=== PATIENT | female | born 1975 | race Caucasian/White ===

== ENCOUNTER 2018-11-22 21:51 | Emergency (ER) | payer OTHER ==
[2018-11-22 21:56] VITALS: BP 107/69; PULSE 78; TEMP 98.5; BMI 23.4
--- NOTE | 2018-11-23 00:21 | PDOC ---
History of Present Illness - General Chief Complaint: Injury Stated Complaint: ANKLE INJURY Time Seen by Provider: 11/22/18 23:21 - History of Present Illness Initial Comments: 11/23/18 00:16 43 yo female with left ankle pain, ankle and foot swelling after twisting it while running yesterday Past History - Past Medical History Allergies/Adverse Reactions: Allergies Allergy/AdvReac Type Severity Reaction Status Date / Time No Known Allergies Allergy Verified 11/22/18 21:57 COPD: No - Psycho Social/Smoking Cessation Hx Smoking History: Never smoked Review of Systems - Review of Systems Able to Perform ROS?: Yes Is the patient limited Tajik proficient: Yes Constitutional: No: Symptoms Reported HEENTM: No: Symptoms Reported Respiratory: No: Symptoms reported Cardiac (ROS): No: Symptoms Reported ABD/GI: No: Symptoms Reported : No: Symptoms Reported Musculoskeletal: Yes: Joint Pain, Joint Swelling Integumentary: No: Symptoms Reported Neurological: No: Symptoms reported Endocrine: No: Symptoms Reported *Physical Exam - Vital Signs Last Vital Signs Temp Pulse Resp BP Pulse Ox 98.5 F 78 18 107/69 97 11/22/18 21:55 11/22/18 21:55 11/22/18 21:55 11/22/18 21:55 11/22/18 21:55 - Physical Exam General Appearance: No: Apparent Distress HEENT: positive: Normal Voice Neck: positive: Supple Respiratory/Chest: positive: Lungs Clear Cardiovascular: positive: Regular Rhythm, Regular Rate Musculoskeletal: positive: Other (left ankle swelling with pain and tenderness laterally, no deformity, distal pulses in tact) Extremity: positive: Normal Capillary Refill Integumentary: positive: Dry, Warm Neurologic: positive: Fully Oriented, Alert, Motor Strength 5/5 ED Treatment Course - RADIOLOGY Radiology Studies Ordered: Category Date Time Status ANKLE-LEFT [RAD] Stat Radiology 11/22/18 23:22 Taken FOOT-LEFT [RAD] Stat Radiology 11/22/18 23:22 Taken Radiograph Interpretation: 11/23/18 00:20 left foot/ankle, no obvious fracture Medical Decision Making - Medical Decision Making 11/23/18 00:20 exam and imaging most c/w ankle sprain splint applied to inability to bear weight will d/c with crutches, ortho follow up Discharge - Discharge Information Problems reviewed: Yes Clinical Impression/Diagnosis: High ankle sprain of left lower extremity Condition: Stable Disposition: HOME - Admission No - Follow up/Referral Referrals: Percy Delgado MD [Staff Physician] - - Patient Discharge Instructions - Post Discharge Activity
== END 2018-11-23 01:00 | disposition home or self-care (01) ==
LOC: JER 21:51 → JERFT 21:51 → JER 11-23 01:00
PROC: 2W3RX1Z Immobilization of Left Lower Leg using Splint (ICD-10-PCS; principal; 2018-11-22)
DX: S93.402A Sprain of unspecified ligament of left ankle, initial encounter (principal); X50.1XXA Overexertion from prolonged static or awkward postures, initial encounter; Y93.02 Activity, running; Y92.89 Other specified places as the place of occurrence of the external cause; Y99.8 Other external cause status
CPT/HCPCS: 73610-TC-LT-FY; 73630-TC-LT; 99281-25

== ENCOUNTER 2022-01-12 08:24 | Day surgery (SDC) | payer OTHER ==
[2022-01-12] MEDS ORDERED: SODIUM CHLORIDE 1,000 ML IV STA ×2 (09:32→13:03)
[2022-01-12] MEDS ORDERED: ONDANSETRON 4 MG/2 ML VIAL IVPUSH ONE (09:40)
[2022-01-12] MEDS ORDERED: ACETAMINOPHEN 1000 MG/100 ML BAG IVPB ONE (09:41)
[2022-01-12] MEDS ORDERED: ACETAMINOPHEN INJECTION 100 ML IVPB ONE (10:31)
[2022-01-12] MEDS ORDERED: ONDANSETRON 4 MG/2 ML VIAL ONE (10:31)
[2022-01-12 10:43] LABS: BASO % 0.3 % (0-2.0); EOS % 0.3 % (0-4.5); EPI CELLS >36 /uL (0-25.1); HEMATOCRIT 41.8 % (32.4-45.2); HEMOGLOBIN 14.5 GM/dL (10.7-15.3); HYALINE CASTS 1 /uL (0-3.1); LYMPH % 11.9 % (8-40); MCH 31.5 pg (25.7-33.7); MCHC 34.6 g/dl (32.0-36.0); MEAN CELL VOLUME 91.2 fl (80-96); MEAN PLT VOLUME 8.6 fl (7.5-11.1); MONO % 4.3 % (3.8-10.2); NEUT % 83.2 % (42.8-82.8); PLATELET COUNT 307 10^3/uL (134-434); RBC 4.59 M/mm3 (3.60-5.2); RDW 13.2 % (11.6-15.6); URINE APPEARANCE CLOUDY; URINE BACTERIA 1018 /uL (0-1359); URINE BILIRUBIN NEGATIVE (NEGATIVE); URINE COLOR YELLOW; URINE GLUCOSE (UA) NEGATIVE (NEGATIVE); URINE KETONE NEGATIVE (NEGATIVE); URINE LEUK ESTERASE NEGATIVE (NEGATIVE); URINE NITRITE NEGATIVE (NEGATIVE); URINE PROTEIN 1+ (NEGATIVE); URINE UROBILINOGEN 0.2 mg/dL (0.2-1.0); URINE WBC 21 /uL (0-25.8); WHITE BLOOD COUNT 9.5 K/mm3 (4.0-10.0)
[2022-01-12 11:03] LABS: HCG,QUALITATIVE URINE Negative
[2022-01-12 11:10] LABS: CALCIUM 9.1 mg/dL (8.5-10.1)
[2022-01-12 11:11] LABS: ALBUMIN 3.9 g/dl (3.4-5.0); BLOOD UREA NITROGEN 23.2 mg/dL (7-18)
[2022-01-12 11:14] LABS: CREATININE 0.7 mg/dL (0.55-1.3)
[2022-01-12 11:15] LABS: BILIRUBIN,TOTAL 0.8 mg/dL (0.2-1); TOT PROT 7.4 g/dl (6.4-8.2)
[2022-01-12] MEDS ORDERED: TAMSULOSIN HCL 0.4 MG CAP PO ONE (12:48)
[2022-01-12] MEDS ORDERED: CEFTRIAXONE 1 GM in DEXTROSE 5%-WATER - 100 ML IVPB ONE (13:03)
[2022-01-12] MEDS ORDERED: morphine CARPU-JECT 2 MG/1 ML DISP.SYRIN IVPUSH ONE (13:07)
[2022-01-12 13:23] LABS: URINE RBC 203.1 /uL (0-23.9)
[2022-01-12] MEDS ORDERED: CEFTRIAXONE 1 GM/50 ML BAG ONE (13:50)
[2022-01-12] MEDS ORDERED: SODIUM CHLORIDE 1,000 ML IV SCH ×3 (15:00→17:30)
[2022-01-12 18:16] LABS: INR 0.97 (0.83-1.09); PROTHROMBIN TIME (PATIENT) 11.2 SEC (9.7-13.0)
[2022-01-12 18:19] LABS: ACTIVATED PTT 32.7 SECONDS (25.2-36.5)
[2022-01-13] MEDS: ACETAMINOPHEN 1000 MG/100 ML BAG IVPB PRN ×2 (02:30→13:43)
[2022-01-13 02:45] VITALS: BMI 21.9
[2022-01-13] MEDS ORDERED: TAMSULOSIN HCL 0.4 MG CAP PO SCH (08:30)
[2022-01-13 10:36] LABS: BASO % 0.2 % (0-2.0); EOS % 0.2 % (0-4.5); HEMOGLOBIN 13.2 GM/dL (10.7-15.3); LYMPH % 12.9 % (8-40); MCHC 33.8 g/dl (32.0-36.0); MEAN CELL VOLUME 91.9 fl (80-96); MEAN PLT VOLUME 8.4 fl (7.5-11.1); MONO % 6.7 % (3.8-10.2); PLATELET COUNT 270 10^3/uL (134-434); RBC 4.24 M/mm3 (3.60-5.2); RDW 13.4 % (11.6-15.6); WHITE BLOOD COUNT 11.9 K/mm3 (4.0-10.0)
[2022-01-13 10:38] LABS: INR 1.03 (0.83-1.09); PROTHROMBIN TIME (PATIENT) 11.9 SEC (9.7-13.0)
[2022-01-13 10:41] LABS: ACTIVATED PTT 29.4 SECONDS (25.2-36.5)
[2022-01-13 11:11] LABS: BLOOD UREA NITROGEN 13.3 mg/dL (7-18); CALCIUM 8.4 mg/dL (8.5-10.1); MAGNESIUM 1.9 mg/dL (1.8-2.4)
[2022-01-13 11:14] LABS: PHOSPHOROUS 4.3 mg/dL (2.5-4.9)
[2022-01-13 11:15] LABS: BILIRUBIN,TOTAL 1.4 mg/dL (0.2-1); CREATININE 0.8 mg/dL (0.55-1.3); TOT PROT 5.6 g/dl (6.4-8.2)
[2022-01-13 11:41] LABS: ALBUMIN 2.8 g/dl (3.4-5.0)
[2022-01-13] MEDS ORDERED: ONDANSETRON 4 MG/2 ML VIAL ONE (14:39)
[2022-01-13] MEDS ORDERED: DEXAMETHASONE SOD PHOSPHATE 4 MG/1 ML VIAL ONE (14:39)
[2022-01-13] MEDS ORDERED: LIDOCAINE HCL/PF 2% SDV 5ML VIAL ONE (14:39)
[2022-01-13] MEDS ORDERED: PROPOFOL 20 ML ONE (14:40)
[2022-01-13] MEDS ORDERED: MIDAZOLAM HCL 2 MG/2 ML SINGLE DOSE VIAL ONE (14:40)
[2022-01-13] MEDS ORDERED: ceFAZolin SODIUM 1 GM VIAL IVPB ONE (15:05)
[2022-01-13] MEDS ORDERED: ceFAZolin SODIUM 1 GM VIAL ONE (15:07)
[2022-01-13] MEDS: SODIUM CHLORIDE 1,000 ML IV SCH (17:54)
[2022-01-14] MEDS ORDERED: TAMSULOSIN HCL 0.4 MG CAP PO SCH (08:30)
[2022-01-14 09:12] LABS: HEMATOCRIT 38.1 % (32.4-45.2); HEMOGLOBIN 13.1 GM/dL (10.7-15.3); MCH 31.8 pg (25.7-33.7); MCHC 34.4 g/dl (32.0-36.0); MEAN CELL VOLUME 92.5 fl (80-96); MEAN PLT VOLUME 8.5 fl (7.5-11.1); PLATELET COUNT 276 10^3/uL (134-434); RBC 4.11 M/mm3 (3.60-5.2); RDW 13.9 % (11.6-15.6); WHITE BLOOD COUNT 10.8 K/mm3 (4.0-10.0)
[2022-01-14 09:43] LABS: CALCIUM 8.6 mg/dL (8.5-10.1)
[2022-01-14 09:44] LABS: BLOOD UREA NITROGEN 14.2 mg/dL (7-18)
[2022-01-14 09:47] LABS: CREATININE 0.5 mg/dL (0.55-1.3)
[2022-01-14] MEDS: SODIUM CHLORIDE 1,000 ML IV SCH (10:15)
[2022-01-14 14:37] VITALS: BP 105/61; PULSE 76; RESP 20; TEMP 98.3
== END 2022-01-14 17:46 | disposition home or self-care (01) ==
LOC: JER 08:24 → JERBED 12:55 → UNDOADMIN 12:55 → JERBED 20:57 → J5S 20:57 → SUATTDRO 01-13 16:22 → JASUSAT 01-13 16:22 → J5S 01-13 16:23 → JASUSAT 01-14 17:46
PROVIDERS: ATTEND Internal Medicine
PROC: 0T9780Z Drainage of Left Ureter with Drainage Device, Via Natural or Artificial Opening Endoscopic (ICD-10-PCS; principal; 2022-01-13 13:00)
PROC: 0T778DZ Dilation of Left Ureter with Intraluminal Device, Via Natural or Artificial Opening Endoscopic (ICD-10-PCS; 2022-01-13 13:00)
DX: N13.30 Unspecified hydronephrosis (principal); N23 Unspecified renal colic
CPT/HCPCS: 36415; 71046-TC-FY; 74176-TC; 76000-TC-FY; 80048; 80053; 81003; 82962; 83036; 83735; 84100; 84703; 85025; 85027; 85610; 85730; 87086; 93005; 93010; 94760; 99285-25; C2617; C9803-CS; U0003; U0005